=== PATIENT | male | born 1960 | race Hispanic/Latino ===

== ENCOUNTER 2021-02-01 11:17 | Emergency (ER) | payer SELFPAY ==
[~2021-02-01] VITALS: Ht 165.1 cm; Wt 79.4 kg
[2021-02-01] MEDS ORDERED: ULTRAM50 MG PO (11:36)
== END 2021-02-01 12:08 | disposition home or self-care (01) ==
LOC: ER 11:35
DX: M25.552 Pain in left hip (principal); G89.29 Other chronic pain
CPT/HCPCS: 99282